=== PATIENT | female | born 1985 ===

== ENCOUNTER 2017-12-01 18:10 | Emergency (ER) | payer SELFPAY ==
[2017-12-01 18:21] VITALS: BMI 35.5
[2017-12-01 18:33] VITALS: RESP 18; TEMP 97.9; O2SAT 100
--- NOTE | 2017-12-01 19:29 | ED PDOC ---
Arrival/HPI - General Chief Complaint: Medical Clearance Time Seen by Provider: 12/01/17 18:17 Historian: Patient - History of Present Illness Narrative History of Present Illness (Text): 12/01/17 19:24 32yo female with no pmhx bib EMS for emotional distress. Patient states she is currently visiting [facility] from [place]. States while at a store this afternoon , a lady from [facility] told her that [place] plan to start a war in [place] tomorrow. She states she started having panic attack, because her children are there. this is a different story from the triage note. Marely, that works in [employer] translated. Patient states she will go back to [place] in 15days. States she currently feels better. She denies chest pain, SOB, diaphoresis, nausea, vomiting, dizziness, abdominal pain, calf pain, LE edema, fever, chills , any other complaint. Past Medical History - Provider Review Nursing Documentation Reviewed: Yes - Infectious Disease Hx of Infectious Diseases: None - Reproductive Menopause: No Family/Social History - Physician Review Nursing Documentation Reviewed: Yes Family/Social History: Unknown Family HX Allergies/Home Meds Allergies/Adverse Reactions: Allergies No Known Allergies Allergy (Verified 12/01/17 18:21) Review of Systems - Physician Review All systems were reviewed & negative as marked: Yes - Review of Systems Constitutional: Normal Eyes: Normal ENT: Normal Respiratory: Normal Cardiovascular: Normal Gastrointestinal: Normal Genitourinary Female: Normal Musculoskeletal: Normal Skin: Normal Neurological: Normal Endocrine: Normal Hemo/Lymphatic: Normal Psychiatric: Anxiety Physical Exam Vital Signs Reviewed: Yes Vital Signs Temp Pulse Resp BP Pulse Ox 12/01/17 20:06 77 18 155/95 H 100 12/01/17 18:32 97.9 F 80 18 157/106 H 100 12/01/17 18:16 98.7 F 88 22 142/82 99 Temperature: Afebrile Blood Pressure: Normal Pulse: Regular Respiratory Rate: Normal Appearance: Positive for: Well-Appearing, Non-Toxic, Comfortable Pain Distress: None Mental Status: Positive for: Alert and Oriented X 3 - Systems Exam Head: Present: Atraumatic, Normocephalic Pupils: Present: PERRL Extroacular Muscles: Present: EOMI Conjunctiva: Present: Normal Mouth: Present: Moist Mucous Membranes Neck: Present: Normal Range of Motion Respiratory/Chest: Present: Clear to Auscultation, Good Air Exchange. No: Respiratory Distress, Accessory Muscle Use Cardiovascular: Present: Regular Rate and Rhythm, Normal S1, S2. No: Murmurs Abdomen: No: Tenderness, Distention, Peritoneal Signs Back: Present: Normal Inspection Upper Extremity: Present: Normal Inspection. No: Cyanosis, Edema Lower Extremity: Present: Normal Inspection. No: Edema Neurological: Present: GCS=15, CN II-XII Intact, Speech Normal Skin: Present: Warm, Dry, Normal Color. No: Rashes Psychiatric: Present: Alert, Oriented x 3, Normal Insight, Normal Concentration Medical Decision Making ED Course and Treatment: 12/02/17 00:46 PT presented for stated history. She was given ativan in ED and observed. On re evaluation she notes resolution of her symptoms. She was DC home and advised to breathing technique. Referred to the clinic. Advised TRT ED for any new or worsening symptoms. - Medication Orders Current Medication Orders: Discontinued Medications Lorazepam (Ativan) 0.5 mg PO ONCE ONE PRN Reason: Protocol Stop: 12/01/17 19:25 Last Admin: 12/01/17 20:06 Dose: 0.5 mg Disposition/Present on Arrival - Present on Arrival Any Indicators Present on Arrival: No History of DVT/PE: No History of Uncontrolled Diabetes: No Urinary Catheter: No History of Decub. Ulcer: No History Surgical Site Infection Following: None - Disposition Have Diagnosis and Disposition been Completed?: Yes Diagnosis: Panic attack Disposition: HOME/ ROUTINE Disposition Time: 19:30 Patient Plan: Discharge Patient Problems: Current Active Problems Problem Status Onset Panic attack Acute Condition: STABLE Discharge Instructions (ExitCare): Anxiety, Adult (DC) Additional Instructions: Follow up with the clinic Return to ED for any new or worsening symptoms Referrals: [facility] [place]] - Follow up with primary Forms: [employer] ([place])
[2017-12-01 20:08] VITALS: BP 155/95; PULSE 77
== END 2017-12-01 20:10 | disposition home or self-care (01) ==
LOC: ED 18:10
DX: F41.0 Panic disorder [episodic paroxysmal anxiety] (principal)